=== PATIENT | male | born 1985 | race Caucasian/White ===

== ENCOUNTER 2016-10-12 01:46 | Emergency (ER) | payer OTHER ==
[~2016-10-12] VITALS: Ht 172.7 cm; Wt 79.0 kg
[~2016-10-12 01:46] MED LIST: DIPH50TA PO; PRED20 PO
[2016-10-12 01:51] VITALS: BP 135/80; PULSE 79; RESP 20; TEMP 97.4; O2SAT 98
[2016-10-12] MEDS ORDERED: ONDANSETRON HCL 4 MG/2 ML VIAL IVP ONE (02:15)
[2016-10-12] MEDS ORDERED: HYDROmorphone HCL PF 1 MG/ML VIAL IVS ONE (02:15)
[2016-10-12] MEDS ORDERED: SODIUM CHLORIDE 0.9% FLUSH 5 ML FLUSH IVF PRN ×2 (02:15)
[2016-10-12 02:29] VITALS: RESP 18; O2SAT 98
[2016-10-12 02:41] LABS: BLOOD, URINE SMALL (NEG); COMMENT (UR) CULT NOT INDICATED; CULTURE IF INDICATED CULT NOT INDICATED; GLUCOSE,URINE NEG (NEG); KETONE, URINE NEG (NEG); MUCUS URINE FEW /lpf (OCC); NITRITE,URINE NEG (NEG); PH, URINE 6.5 (5.0-8.5); SQUAMOUS EPITHELIAL CELL URINE <1 /hpf (0-5); URINE COLOR YELLOW (YELLW/STRAW)
[2016-10-12] MEDS ORDERED: IOHEXOL 350 MG/ML 10 ML VIAL (for RAD DIAG) IV ONE (02:52)
[2016-10-12 02:54] LABS: BASOPHIL % 0.3 % (0.0-2.0); EOSINOPHIL # 0.2 TH/MM3 (0-0.4); EOSINOPHIL % 2.4 % (0.0-4.0); HEMATOCRIT 41.1 % (39.0-51.0); HEMO FLAGS DIFF FINAL; LYMPH % 38.1 % (9.0-44.0); LYMPHOCYTE # 3.1 TH/MM3 (1.0-4.8); MEAN CELL VOLUME 85.7 FL (80.0-100.0); MEAN CORPUSCULAR HEMOGLOBIN 30.1 PG (27.0-34.0); MEAN CORPUSCULAR HGB CONC 35.1 % (32.0-36.0); MONO % 9.1 % (0.0-8.0); NEUT % 50.1 % (16.0-70.0); PLATELET COUNT 294 TH/MM3 (150-450); RED CELL DISTRIBUTION WIDTH 12.7 % (11.6-17.2)
[2016-10-12 02:57] LABS: ALT (GPT) 23 U/L (12-78); ANION GAP 8 MEQ/L (5-15); AST (GOT) 19 U/L (15-37); BICARBONATE 24.9 MEQ/L (21.0-32.0); BLOOD UREA NITROGEN 21 MG/DL (7-18); CHLORIDE 109 MEQ/L (98-107); GLOMERULAR FILTRATION RATE 69 ML/MIN (>89); POTASSIUM 3.6 MEQ/L (3.5-5.1); SODIUM (NA) 142 MEQ/L (136-145)
[2016-10-12 02:59] LABS: ALKALINE PHOSPHATASE 50 U/L (45-117); TOTAL BILIRUBIN ADULT 0.4 MG/DL (0.2-1.0)
--- NOTE | 2016-10-12 02:59 | RADRPT ---
EXAM DATE/TIME: 10/12/2016 02:31 [facility] COMPARISON: No previous studies available for comparison. INDICATIONS : Left lower quadrant pain for two days IV CONTRAST: 95 cc Omnipaque 350 (iohexol) IV ORAL CONTRAST: No oral contrast ingested. RADIATION DOSE: 9.96 CTDIvol (mGy) MEDICAL HISTORY : None SURGICAL HISTORY : Shoulder surgery. ENCOUNTER: Initial ACUITY: 2 days PAIN SCALE: 8/10 LOCATION: Left lower quadrant TECHNIQUE: Volumetric scanning of the abdomen and pelvis was performed. Using automated exposure control and ad justment of the mA and/or kV according to patient size, radiation dose was kept as low as reasonably achievable to obtain optimal diagnostic quality images. FINDINGS: LOWER LUNGS: The visualized lower lungs are clear. LIVER: Homogeneous density without lesion. There is no dilation of the biliary tree. No calcified gallston es. SPLEEN: Normal size without lesion. PANCREAS: Within normal limits. KIDNEYS: There is a 2 mm stone at the left UVJ. There is calcification and focal cortical thinning at the mid left kidney likely from prior insult. There is a small to 3 mm right nonobstructing stone seen. Signi ficant hydronephrosis is not seen on either side. ADRENAL GLANDS: Within normal limits. VASCULAR: There is no aortic aneurysm. BOWEL/MESENTERY: The stomach, small bowel, and colon demonstrate no acute abnormality. There is no free intraperitone al air or fluid. ABDOMINAL WALL: Within normal limits. RETROPERITONEUM: There is no lymphadenopathy. BLADDER: No wall thickening or mass. REPRODUCTIVE: Within normal limits. INGUINAL: There is no lymphadenopathy or hernia. MUSCULOSKELETAL: Within normal limits for patient age. CONCLUSION: There is a 2 mm stone at the distal left ureter at the UVJ. Focal area of calcification and cortical thinning at the left mid kidney likely from prior insult. The calcifications may represent nonobstruc ting stones. There is a small amount tracking stone seen on the right side. Carols Taylor MD on October 12, 2016 at 2:53 Board Certified Radiologist. This report was verified electronically.
[2016-10-12] MEDS ORDERED: TAMS5CAP PO (03:06)
[2016-10-12] MEDS ORDERED: PERC5TAB12 PO (03:06)
--- NOTE | 2016-10-12 03:06 | PD ---
HPI Chief Complaint: Abdominal Pain Time Seen by Provider: 02:04 Travel History International Travel<30 days: No Contact w/Intl Traveler<30days: No Traveled to known affect area: No History of Present Illness HPI Patient is 30 years old and arrives complaining of left abdominal pain for 2 days. About 1 hour prior to ER arrival became severe. It radiates from his left upper quadrant to the groin. He reports pain in the penis and left testicle as well. He has had no vomiting nausea or diarrhea. He's had no fever. No similar prior episode. He has no significant past medical history. He has undergone surgery of the left shoulder. He has no drug allergies. He takes no medication on a regular basis. [facility] Past Medical History Medical History: Denies Significant Hx Diminished Hearing: No Social History Alcohol Use: No Tobacco Use: No (quit 5 yrs ago) Substance Use: No Allergies-Medications (Allergen,Severity, Reaction): Coded Allergies: No Known Allergies (Unverified , 10/12/16) Reported Meds & Prescriptions Reported Meds & Active Scripts Active Percocet (Oxycodone-Acetaminophen) 5-325 mg Tab 2 Tab PO Q6H PRN Flomax (Tamsulosin HCl) 0.4 Mg Cap 0.4 Mg PO HS Review of Systems Except as stated in HPI: all other systems reviewed are Neg Physical Exam Narrative GENERAL: 30-year-old male pleasant, moderate distress secondary to pain GENITOURINARY: Testicular lie appears normal. There is no discharge or blood at the meatus. Cremasteric reflex intact bilaterally. SKIN: Warm and dry. HEAD: Atraumatic. Normocephalic. EYES: Pupils equal and round. No scleral icterus. No injection or drainage. ENT: No nasal bleeding or discharge. Mucous membranes pink and moist. NECK: Trachea midline. No JVD. CARDIOVASCULAR: Regular rate and rhythm. No murmur appreciated. RESPIRATORY: No accessory muscle use. Clear to auscultation. Breath sounds equal bilaterally. GASTROINTESTINAL: Abdomen soft. Minimal tenderness to palpation along the left side. MUSCULOSKELETAL: No obvious deformities. No clubbing. No cyanosis. No edema. NEUROLOGICAL: Awake and alert. No obvious cranial nerve deficits. Motor grossly within normal limits. Normal speech. PSYCHIATRIC: Appropriate mood and affect; insight and judgment normal. Data Data Last Documented VS Vital Signs Date Time Temp Pulse Resp B/P Pulse Ox O2 Delivery O2 Flow Rate FiO2 10/12/16 02:29 18 98 Room Air 10/12/16 01:51 97.4 79 135/80 Orders Complete Blood Count With Diff (10/12/16 02:09) Comprehensive Metabolic Panel (10/12/16 02:09) Lipase (10/12/16 02:09) Lactic Acid (10/12/16 02:09) Urinalysis - C+S If Indicated (10/12/16 02:09) Ct Abd/Pel W Iv Contrast(Rout) (10/12/16 02:09) Iv Access Insert/Monitor (10/12/16 02:09) Ecg Monitoring (10/12/16 02:09) Oximetry (10/12/16 02:09) Ondansetron Inj (Zofran Inj) (10/12/16 02:15) Sodium Chloride 0.9% Flush (Ns Flush) (10/12/16 02:15) Hydromorphone Pf Inj (Dilaudid Pf Inj) (10/12/16 02:15) Us Testicles W Doppler (10/12/16 02:09) Sodium Chloride 0.9% Flush (Ns Flush) (10/12/16 02:15) Iohexol 350 Inj (Omnipaque 350 Inj) (10/12/16 02:52) Strain Urine PRN (10/12/16 03:07) Ketorolac Inj (Toradol Inj) (10/12/16 03:15) Hydromorphone Pf Inj (Dilaudid Pf Inj) (10/12/16 03:15) Labs Laboratory Tests Test 10/12/16 10/12/16 10/12/16 02:10 02:15 02:20 Urine Color YELLOW Urine Turbidity HAZY Urine pH 6.5 Urine Specific Hersey 1.020 Urine Protein NEG mg/dL Urine Glucose (UA) NEG mg/dL Urine Ketones NEG mg/dL Urine Occult Blood SMALL Urine Nitrite NEG Urine Bilirubin NEG Urine Urobilinogen LESS THAN 2.0 MG/DL Urine Leukocyte Esterase NEG Urine RBC 38 /hpf Urine WBC 4 /hpf Urine Squamous Epithelial <1 /hpf Cells Urine Amorphous Sediment RARE Urine Mucus FEW /lpf Microscopic Urinalysis Comment CULT NOT INDICATED White Blood Count 8.0 TH/MM3 Red Blood Count 4.80 MIL/MM3 Hemoglobin 14.4 GM/DL Hematocrit 41.1 % Mean Corpuscular Volume 85.7 FL Mean Corpuscular Hemoglobin 30.1 PG Mean Corpuscular Hemoglobin 35.1 % Concent Red Cell Distribution Width 12.7 % Platelet Count 294 TH/MM3 Mean Platelet Volume 8.0 FL Neutrophils (%) (Auto) 50.1 % Lymphocytes (%) (Auto) 38.1 % Monocytes (%) (Auto) 9.1 % Eosinophils (%) (Auto) 2.4 % Basophils (%) (Auto) 0.3 % Neutrophils # (Auto) 4.0 TH/MM3 Lymphocytes # (Auto) 3.1 TH/MM3 Monocytes # (Auto) 0.7 TH/MM3 Eosinophils # (Auto) 0.2 TH/MM3 Basophils # (Auto) 0.0 TH/MM3 CBC Comment DIFF FINAL Differential Comment Sodium Level 142 MEQ/L Potassium Level 3.6 MEQ/L Chloride Level 109 MEQ/L Carbon Dioxide Level 24.9 MEQ/L Anion Gap 8 MEQ/L Blood Urea Nitrogen 21 MG/DL Creatinine 1.21 MG/DL Estimat Glomerular Filtration 69 ML/MIN Rate Random Glucose 103 MG/DL Calcium Level 9.1 MG/DL Total Bilirubin 0.4 MG/DL Aspartate Amino Transf 19 U/L (AST/SGOT) Alanine Aminotransferase 23 U/L (ALT/SGPT) Alkaline Phosphatase 50 U/L Total Protein 6.5 GM/DL Albumin 4.0 GM/DL Lipase 188 U/L Lactic Acid Level 1.1 mmol/L [facility] Medical Decision Making Medical Screen Exam Complete: Yes Emergency Medical Condition: Yes Medical Record Reviewed: Yes Differential Diagnosis Constipation, Gastritis, Acute Cholecystitis, Biliary Colic, Pancreatitis, PULLIAM , Hepatitis, Bowel Obstruction, Cystitis, Mesenteric Ischemia, AAA, Appendicitis , Renal Stone/Hydronephrosis, GERD, perforated viscous, testicular torsion, epididymitis, urethritis, prostatitis Narrative Course CBC & BMP Diagram 10/12/16 02:15 Lactic acid 1.1 LFTs normal Lipase normal Urinalysis reveals hematuria Last 24 hours Impressions Scrotum Ultrasound 10/12/169 Signed Impressions: Service Date/Time: September 02:40 - CONCLUSION: 1. Suspected mild left varicocele. 2. Minimal hydroceles bilaterally. 3. The testicles appear normal. Carlos Taylor MD Abdomen/Pelvis CT 10/12/16 0209 Signed Impressions: Service Date/Time: September 02:31 - CONCLUSION: There is a 2 mm stone at the distal left ureter at the UVJ. Focal area of calcification and cortical thinning at the left mid kidney likely from prior insult. The calcifications may represent nonobstructing stones. There is a small amount tracking stone seen on the right side. Carlos Taylor MD After 1 mg of hydromorphone patient experienced an inevitable pain relief. At approximately 3:00 AM pain returned and second milligram of hydromorphone and 30 mg of ketorolac IV for ordered. The patient was reassessed at about 4:00 AM in reported resolution of pain. Diagnoses were explained. Follow-up plan discussed. Patient verbalized agreement with plan. Diagnosis Primary Impression: Ureter, calculus Additional Impressions: Renal calcinosis Varicocele Hydrocele in adult Referrals: Tonny Moss MD call for appointment Additional Instructions: You have a choice when it comes to health care, and we are glad that you chose [facility]. Hopefully, we have met your expectations on today's visit. You are welcome to return to [facility] at any time, as we are committed to meeting the health care needs of our community. Med/Other Pt SpecificInfo: Prescription(s) given Scripts Oxycodone-Acetaminophen (Percocet)5-325 mg Tab2 Tab PO Q6H PRN (PAIN SCALE 6 TO 10) #20 TAB Ref 0 Prov:Ag Pritchett MD 10/12/16 Tamsulosin (Flomax)0.4 Mg Cap0.4 Mg PO HS #4 CAP Ref 0 Prov:Ag Pritchett MD 10/12/16 Disposition: 01 DISCHARGE HOME Condition: Stable Ag Pritchett MD Oct 12, 2016 03:06
[2016-10-12] MEDS ORDERED: KETOROLAC TROMETHAMINE 30 MG/ML (IVP) VIAL IV PUSH ONE (03:15)
[2016-10-12] MEDS ORDERED: HYDROmorphone HCL PF 1 MG/ML VIAL IV PUSH ONE (03:15)
--- NOTE | 2016-10-12 03:20 | RADRPT ---
EXAM DATE/TIME: 10/12/2016 02:40 [facility] COMPARISON: No previous studies available for comparison. INDICATIONS : Left testicle pain. MEDICAL HISTORY : Left testicle pain. SURGICAL HISTORY : Left shoulder surgery. ENCOUNTER: Initial ACUITY: 1 day PAIN SCORE: 8/10 LOCATION: Bilateral scrotum. MEASUREMENTS: RIGHT TESTICLE: 4.6 x 3.0 x 1.8 cm LEFT TESTICLE: 4.0 x 2.5 x 2.1 cm FINDINGS: RIGHT TESTICLE: Homogeneous echotexture without intra or extratesticular mass. Blood flow is symmetric and within no rmal limits. There is a minimal hydrocele. No varicocele is seen. There is a 3 mm cyst in the epididy mal head. LEFT TESTICLE: Homogeneous echotexture without intra or extratesticular mass. Blood flow is symmetric and within no rmal limits. There is a minimal hydrocele. There is increased flow in the left inguinal canal likely related to a mild varicocele. There is a 4 mm cyst at the epididymal head. SCROTUM: Within normal limits. CONCLUSION: 1. Suspected mild left varicocele. 2. Minimal hydroceles bilaterally. 3. The testicles appear normal. Carlos Taylor MD on October 12, 2016 at 3:14 Board Certified Radiologist. This report was verified electronically.
== END 2016-10-12 05:49 | disposition home or self-care (01) ==
LOC: NEPC 01:46
DX: N20.1 Calculus of ureter (principal); I86.1 Scrotal varices; N43.3 Hydrocele, unspecified; Z87.891 Personal history of nicotine dependence
CPT/HCPCS: 74177; 76870; 80053; 81001; 83605; 83690; 85025; 93975; 96374; 96375; 96376; 99284; J1170; J1885; J2405; Q9967